=== PATIENT | male | born 1955 | race Caucasian/White ===

== ENCOUNTER → 2021-03-20 | Outpatient (CLI) | payer MEDICARE ==
[~2021-03-20] MED LIST: ATIVAN0.5 MG PO; FELODIPINE10 MG PO; LIDEX0.05% T; OMEPRAZOLE20 MG PO; PREDNICOT20 MG PO
== END | disposition home or self-care (01) ==
LOC: US 13:00
PROVIDERS: ATTEND Urology
DX: N20.0 Calculus of kidney (principal); N28.89 Other specified disorders of kidney and ureter; N13.39 Other hydronephrosis

== ENCOUNTER → 2021-03-29 | Outpatient (CLI) | payer MEDICARE ==
[2021-03-29 11:36] LABS: BASO % 0.1 % (0.0-1.0); HEMATOCRIT 40.9 % (42.0-52.0); LYMPH # 1.8 10*3/uL (1.3-4.4); LYMPH % 11.1 % (27.0-41.0); MEAN CELL VOLUME 88.9 fl (80.0-94.0); MEAN CORPUSCULAR HGB 28.5 pg (27.0-31.0); MEAN PLATELET VOLUME 9.2 fl (9.6-12.3); MONO # 0.8 10*3/uL (0.1-1.0); MONO % 5.3 % (3.0-9.0); NEUT # 13.2 10*3/uL (2.3-7.9); NEUT % 82.7 % (47.0-73.0); PLATELET COUNT AUTOMATED 445 10*3/uL (130-400); RED CELL DISTRI WIDTH 15.5 % (0-14.5); WHITE BLOOD COUNT 15.9 10*3/uL (4.8-10.8)
[2021-03-29 11:54] LABS: ALBUMIN 3.5 gm/dl (3.1-4.5); BUN 32 mg/dl (7-24); CHLORIDE 105 mmol/L (98-107); CREATININE 1.28 mg/dL (0.70-1.30); SGOT/AST 9 IU/L (3-35); SGPT/ALT 16 U/L (12-78); SODIUM 134 mmol/L (136-145); TOTAL PROTEIN 8.5 gm/dL (6.4-8.2)
[2021-03-29 11:57] LABS: ALKALINE PHOSPHATASE 106 U/L (45-117)
== END | disposition home or self-care (01) ==
LOC: LAB 10:59
PROVIDERS: ATTEND Urology
DX: Z12.5 Encounter for screening for malignant neoplasm of prostate (principal); R53.83 Other fatigue; D40.0 Neoplasm of uncertain behavior of prostate

== ENCOUNTER 2022-05-13 12:52 | Inpatient (IN) | payer MEDICARE ==
[~2022-05-13] VITALS: Ht 177.8 cm; Wt 116.1 kg
[2022-05-13 12:55] VITALS: BP 131/58
[2022-05-13 13:55] LABS: ABG BASE EXCESS -3.1 mmol/L (-2.0-2.0); ARTERIAL BLOOD GAS PH 7.415 (7.35-7.45)
[2022-05-13 14:05] LABS: HEMATOCRIT 40.8 % (42.0-52.0); MEAN CELL VOLUME 92.3 fl (80.0-94.0); MEAN CORPUSCULAR HGB 30.3 pg (27.0-31.0); MEAN CORPUSCULAR HGB CONC 32.8 g/dl (33.0-37.0); MEAN PLATELET VOLUME 9.9 fl (9.6-12.3); NUCLEATED RED BLOOD CELL 0.1 10*3/uL (0.0-0.0); NUCLEATED RED BLOOD CELL 1.1 % (0.0-0.0); PLATELET COUNT AUTOMATED 119 10*3/uL (130-400); RED BLOOD COUNT 4.42 10*6/uL (4.50-5.90)
[2022-05-13 14:06] LABS: MANUAL DIFF REFLEX YES
[2022-05-13 14:10] LABS: ACT PARTIAL THROMBO TIME 25.9 SECONDS (20.0-32.1); INTERNATIONAL NORM RATIO 1.1 (2.0-3.5)
[2022-05-13 14:20] LABS: CREATININE 2.12 mg/dL (0.70-1.30); POTASSIUM 4.3 mmol/L (3.5-5.1); TOTAL PROTEIN 5.5 gm/dL (6.4-8.2)
[2022-05-13 14:32] LABS: PLATELET SUFFICIENCY LOW (NORMAL); POLYCHROMASIA SLIGHT; TOTAL CELLS COUNTED 100 #CELLS; TOXIC GRANULATION SLIGHT
[2022-05-13 14:33] LABS: OVALOCYTES FEW
[2022-05-13 21:32] VITALS: BP 92/67
[2022-05-13] MEDS ORDERED: MESALAMINE1.2 GM PO (21:40)
[2022-05-13] MEDS ORDERED: PROVENTIL HFA6.7 GM INH (21:41)
[2022-05-13] MEDS ORDERED: METHOCARBAMOL500 M1 PO (21:41)
[2022-05-14 00:14] VITALS: BP 101/63
[2022-05-14 02:34] VITALS: BP 121/74
[2022-05-14 04:24] LABS: HEMATOCRIT 40.3 % (42.0-52.0); MEAN CELL VOLUME 93.1 fl (80.0-94.0); MEAN CORPUSCULAR HGB CONC 32.3 g/dl (33.0-37.0); MEAN PLATELET VOLUME 10.4 fl (9.6-12.3); NUCLEATED RED BLOOD CELL 0.1 10*3/uL (0.0-0.0); NUCLEATED RED BLOOD CELL 0.4 % (0.0-0.0); PLATELET COUNT AUTOMATED 104 10*3/uL (130-400); RED BLOOD COUNT 4.33 10*6/uL (4.50-5.90); RED CELL DISTRI WIDTH 18.2 % (0-14.5); WHITE BLOOD COUNT 12.7 10*3/uL (4.8-10.8)
[2022-05-14 04:25] LABS: MANUAL DIFF REFLEX YES
[2022-05-14 04:41] LABS: CREATININE 2.19 mg/dL (0.70-1.30); POTASSIUM 4.7 mmol/L (3.5-5.1); TOTAL PROTEIN 5.6 gm/dL (6.4-8.2)
[2022-05-14 04:42] LABS: FREE T4 0.74 ng/dl (0.76-1.46)
[2022-05-14 04:47] LABS: THYROID STIM HORMONE (HS) 2.5 uIU/ml (0.358-4.75)
[2022-05-14 05:01] LABS: PLATELET SUFFICIENCY LOW (NORMAL); TOTAL CELLS COUNTED 100 #CELLS
[2022-05-14 06:35] LABS: BILIRUBIN 3+ (Negative); BLOOD 3+ (Negative); CLARITY Turbid (Clear); GLUCOSE Trace (Negative); KETONE Negative (Negative); LEUKO ESTERASE 2+ (Negative); NITRITE Positive (Negative); SPECIFIC GRAVITY >= 1.030 (1.001-1.030)
[2022-05-14 06:55] LABS: COLOR Orange (Yellow)
[2022-05-14 12:26] VITALS: BP 113/76
[2022-05-14 20:00] VITALS: BP 105/58
[2022-05-15] VITALS: BP 102/62
[2022-05-15 06:07] LABS: HBSAG Negative (Negative); HEP B CORE AB, IGM Negative (Negative); HEPATITIS C ANTIBODY 0.1 (0.0-0.9)
[2022-05-15 08:00] VITALS: BP 100/49
[2022-05-15] MEDS ORDERED: ZOSYN 4.54.5 GM/100 IV (09:01)
[2022-05-15 12:00] VITALS: BP 129/69
[2022-05-15 16:00] VITALS: BP 115/54
== END 2022-05-15 18:28 | disposition short-term general hospital (02) | DRG 871 ==
LOC: ED 12:52 → 4E 19:00 → EDHOLD 19:00 → 4E 05-14 07:16
PROVIDERS: Emergency Medicine; Student in an Organized Health Care Education/Training Program; ADMIT Student in an Organized Health Care Education/Training Program; ATTEND Student in an Organized Health Care Education/Training Program
DX: A41.50 Gram-negative sepsis, unspecified (principal); J18.9 Pneumonia, unspecified organism; N17.0 Acute kidney failure with tubular necrosis; E43 Unspecified severe protein-calorie malnutrition; J96.01 Acute respiratory failure with hypoxia; E87.2 Acidosis; K51.90 Ulcerative colitis, unspecified, without complications; J44.1 Chronic obstructive pulmonary disease with (acute) exacerbation; J44.0 Chronic obstructive pulmonary disease with (acute) lower respiratory infection; R65.20 Severe sepsis without septic shock; Z20.822 Contact with and (suspected) exposure to COVID-19; I10 Essential (primary) hypertension; K21.9 Gastro-esophageal reflux disease without esophagitis; D64.9 Anemia, unspecified; Z96.652 Presence of left artificial knee joint; G89.29 Other chronic pain; M54.9 Dorsalgia, unspecified; K82.8 Other specified diseases of gallbladder; E86.0 Dehydration; K83.8 Other specified diseases of biliary tract; R74.01 Elevation of levels of liver transaminase levels; K80.50 Calculus of bile duct without cholangitis or cholecystitis without obstruction; Z82.3 Family history of stroke; Z93.3 Colostomy status; Z90.49 Acquired absence of other specified parts of digestive tract; Z88.8 Allergy status to other drugs, medicaments and biological substances; Z79.82 Long term (current) use of aspirin; Z79.899 Other long term (current) drug therapy; Z87.891 Personal history of nicotine dependence; Z82.61 Family history of arthritis; Z68.36 Body mass index [BMI] 36.0-36.9, adult

== ENCOUNTER 2022-06-06 12:56 | Emergency (ER) | payer MEDICARE ==
[~2022-06-06] VITALS: Ht 177.8 cm; Wt 115.2 kg
[~2022-06-06 12:56] MED LIST changes: +MESALAMINE1.2 GM PO; +METHOCARBAMOL500 M1 PO; +PROVENTIL HFA6.7 GM INH; +ZOSYN 4.54.5 GM/100 IV
[2022-06-06 13:27] LABS: HEMATOCRIT 30.4 % (42.0-52.0); MANUAL DIFF REFLEX YES; MEAN CELL VOLUME 97.4 fl (80.0-94.0); MEAN CORPUSCULAR HGB 30.8 pg (27.0-31.0); MEAN CORPUSCULAR HGB CONC 31.6 g/dl (33.0-37.0); MEAN PLATELET VOLUME 9.6 fl (9.6-12.3); PLATELET COUNT AUTOMATED 173 10*3/uL (130-400); RED BLOOD COUNT 3.12 10*6/uL (4.50-5.90); RED CELL DISTRI WIDTH 18.7 % (0-14.5); WHITE BLOOD COUNT 11.5 10*3/uL (4.8-10.8)
[2022-06-06 13:37] LABS: ACT PARTIAL THROMBO TIME 26.5 SECONDS (20.0-32.1); INTERNATIONAL NORM RATIO 1.2 (2.0-3.5)
[2022-06-06 13:43] LABS: CREATININE 1.82 mg/dL (0.70-1.30); POTASSIUM 3.4 mmol/L (3.5-5.1); TOTAL PROTEIN 6.3 gm/dL (6.4-8.2)
[2022-06-06 13:50] LABS: ATYPICAL LYMPHS 2 % (0-0); PLATELET SUFFICIENCY NORMAL (NORMAL); POLYCHROMASIA SLIGHT; STOMATOCYTE FEW; TOTAL CELLS COUNTED 100 #CELLS
[2022-06-06 13:51] LABS: OVALOCYTES FEW; TOXIC GRANULATION SLIGHT
[2022-06-06 13:57] LABS: BLASTS 1 % (0-0)
[2022-06-06 14:01] LABS: BILIRUBIN Negative (Negative); BLOOD Trace-Intact (Negative); CLARITY Turbid (Clear); COLOR Yellow (Yellow); GLUCOSE Negative (Negative); KETONE 2+ (Negative); LEUKO ESTERASE 2+ (Negative); NITRITE Negative (Negative); PH 5.5 (4.5-8.0)
[2022-06-06 14:19] LABS: YEAST 4+
[2022-06-06 14:20] LABS: BACTERIA 2+; MUCOUS 2+; WBC 21-30 wbc/hpf (0-5)
[2022-06-06 14:22] LABS: EPITHELIAL CELLS 0-2; RBC 0-2 rbc/hpf (0-2)
== END 2022-06-06 21:30 | disposition short-term general hospital (02) ==
LOC: ED 12:56
PROVIDERS: Emergency Medicine
DX: N13.30 Unspecified hydronephrosis (principal); E86.0 Dehydration; E87.0 Hyperosmolality and hypernatremia; R41.0 Disorientation, unspecified; E66.01 Morbid (severe) obesity due to excess calories; J44.9 Chronic obstructive pulmonary disease, unspecified; I10 Essential (primary) hypertension; K21.9 Gastro-esophageal reflux disease without esophagitis; E46 Unspecified protein-calorie malnutrition; Z68.33 Body mass index [BMI] 33.0-33.9, adult; Z88.6 Allergy status to analgesic agent; Z79.899 Other long term (current) drug therapy; Z90.89 Acquired absence of other organs; Z96.652 Presence of left artificial knee joint; Z87.891 Personal history of nicotine dependence